=== PATIENT | female | born 1980 | race Caucasian/White ===

== ENCOUNTER 2023-05-05 21:40 | Emergency (ER) | payer OTHER ==
[~2023-05-05] VITALS: Ht 165.1 cm; Wt 81.0 kg
[2023-05-05 21:54] VITALS: BP 169/98; PULSE 63; RESP 18; TEMP 97.8; O2SAT 100
[2023-05-05] MEDS ORDERED: IBUPROFEN 600MG TABLET PO ONE (22:45)
== END 2023-05-05 23:27 | disposition left against medical advice (07) ==
LOC: ER 21:40
DX: I10 Essential (primary) hypertension (principal); G43.909 Migraine, unspecified, not intractable, without status migrainosus; Z90.49 Acquired absence of other specified parts of digestive tract
CPT/HCPCS: 99282

== ENCOUNTER 2024-01-08 17:47 | Emergency (ER) | payer MEDICAID, OTHER ==
[~2024-01-08] VITALS: Ht 162.6 cm; Wt 83.0 kg
[2024-01-08 17:54] VITALS: BP 171/113; PULSE 98; TEMP 100; O2SAT 100
[2024-01-08] MEDS ORDERED: ACET-2708 MT (20:38)
[2024-01-08] MEDS ORDERED: ALBU18HF2 IH (20:38)
[2024-01-08] MEDS ORDERED: IBUP-2029 MT (20:38)
[2024-01-08] MEDS ORDERED: AZIT250T12 MT (20:38)
[2024-01-08] MEDS ORDERED: GUAI237L83 MT (20:38)
[2024-01-08 20:45] VITALS: RESP 18
== END 2024-01-08 20:46 | disposition home or self-care (01) ==
LOC: ER 17:47
DX: J40 Bronchitis, not specified as acute or chronic (principal); J02.9 Acute pharyngitis, unspecified; I10 Essential (primary) hypertension; Z90.49 Acquired absence of other specified parts of digestive tract
CPT/HCPCS: 99283